=== PATIENT | male | born 1955 | race Asian ===

== ENCOUNTER 2017-10-21 12:11 | Outpatient (CLI) | payer OTHER | END 2017-10-21 12:12 | disposition home or self-care (01) | LOC: BICMRI 12:11 | PROVIDERS: ATTEND Family Medicine | DX: M23.92 Unspecified internal derangement of left knee (principal) ==

== ENCOUNTER 2022-02-10 18:49 | Inpatient (IN) | payer MEDICARE ==
[2022-02-10] MEDS ORDERED: hydrALAZINE 20 MG/ML VIAL SLOW IVP PRN (20:26)
[2022-02-10] MEDS ORDERED: Ondansetron PF 4 MG/2 ML Vial IVP PRN (20:26)
[2022-02-10] MEDS ORDERED: Labetalol HCl 100 MG/20 ML VIAL SLOW IVP PRN (20:26)
[2022-02-10] MEDS ORDERED: HumaLOG 300 UNITS/3 ML VIAL SC PRN (20:29)
[2022-02-10] MEDS ORDERED: Dextrose 50% Abboject 50 ML SYRINGE SLOW IVP PRN (20:29)
[2022-02-10] MEDS ORDERED: Dextrose 5% in Water 1,000 ML IV PRN (20:29)
[2022-02-10] MEDS ORDERED: Aspirin 325 mg Enteric Coated Tablet PO SCH (20:30)
[2022-02-10 21:01] VITALS: BMI 29.2
[2022-02-11 05:34] LABS: #Eosinphils 0.4 thou/uL (0.0-0.7); #Monocytes 0.5 thou/uL (0.11-0.59); #Neutrophils 3.7 thou/uL (1.40-6.50); %Basophils 0.7 % (0.0-1.0); %Eosinophils 5.9 % (0.0-10.0); %Monocytes 7.8 % (0.0-10.0); %Neutrophils 55.7 % (42.0-75.0); Hemoglobin 13.8 g/dL (14.0-18.0); Mean Corpuscular HGB CONC 33.2 g/dL (32.0-36.0); Mean Corpuscular Hemoglobin 29.1 pg (27.0-31.0); Mean Corpuscular Volume 87.5 fL (78.0-98.0); Mean Platelet Volume 7.9 fL (7.4-10.4); Platelet Count 227 thou/uL (130-400); RBC Distribution Width 12.4 % (11.5-14.5); Red Blood Cell (RBC) Count 4.76 mill/uL (4.70-6.10); White Blood Cell (WBC) Count 6.6 thou/uL (4.8-10.8)
[2022-02-11 05:57] LABS: Anion Gap 15 mmol/L (10-20); BUN (Urea Nitrogen) 19 mg/dL (8.4-25.7); Calc. Creatinine Clearance 99 mL/min (70-130); Calcium 9.3 mg/dL (7.8-10.44); Carbon Dioxide 25 mmol/L (23-31); Chloride 103 mmol/L (98-107); Cholesterol 194 mg/dl (< 200 Desired); Estimated GFR 97; Glucose 116 mg/dL (80-115); HDL Cholesterol 39 mg/dL (>60 Neg Risk); LDL Cholesterol, Calculated 124 mg/dL; Potassium 3.1 mmol/L (3.5-5.1); Sodium 140 mmol/L (136-145); Triglycerides 157 mg/dL (Less than 150)
[2022-02-11] MEDS ORDERED: Potassium Chloride 20 MEQ TAB PO SCH (09:00)
[2022-02-11] MEDS ORDERED: Losartan/Hydrochlorothiazide 100 mg/25 mg Tablet PO SCH (09:00)
[2022-02-11] MEDS: Loratadine 10 MG TAB PO SCH (10:19)
[2022-02-11] MEDS ORDERED: Aspirin 81 mg Enteric Coated Tablet PO SCH (13:45)
[2022-02-11] MEDS: hydrALAZINE 25 MG TAB PO SCH ×2 (15:58→21:15)
[2022-02-11] MEDS: HumaLOG 300 UNITS/3 ML VIAL SC PRN (17:33)
[2022-02-11] MEDS ORDERED: Atorvastatin Calcium 40 MG TAB PO SCH (21:00)
[2022-02-12] MEDS: Acetaminophen 325 MG TAB PO PRN ×2 (03:47→10:22)
[2022-02-12] MEDS ORDERED: Electrolyte Replacement Protocol 1 EACH FS SCH (05:00)
[2022-02-12 05:29] LABS: #Eosinphils 0.3 thou/uL (0.0-0.7); #Monocytes 0.7 thou/uL (0.11-0.59); #Neutrophils 9.7 thou/uL (1.40-6.50); %Basophils 0.3 % (0.0-1.0); %Eosinophils 2.5 % (0.0-10.0); %Lymphocytes 8.7 % (21.0-51.0); %Monocytes 6.1 % (0.0-10.0); %Neutrophils 82.4 % (42.0-75.0); Hemoglobin 13.6 g/dL (14.0-18.0); Mean Corpuscular HGB CONC 33.4 g/dL (32.0-36.0); Mean Corpuscular Hemoglobin 29.2 pg (27.0-31.0); Mean Corpuscular Volume 87.4 fL (78.0-98.0); Platelet Count 233 thou/uL (130-400); RBC Distribution Width 12.2 % (11.5-14.5); Red Blood Cell (RBC) Count 4.66 mill/uL (4.70-6.10); White Blood Cell (WBC) Count 11.8 thou/uL (4.8-10.8)
[2022-02-12 05:47] LABS: Anion Gap 14 mmol/L (10-20); BUN (Urea Nitrogen) 19 mg/dL (8.4-25.7); Calc. Creatinine Clearance 99 mL/min (70-130); Carbon Dioxide 23 mmol/L (23-31); Chloride 104 mmol/L (98-107); Estimated GFR 97; Glucose 135 mg/dL (80-115); Potassium 3.4 mmol/L (3.5-5.1); Sodium 138 mmol/L (136-145)
[2022-02-12 05:48] LABS: Magnesium 1.8 mg/dL (1.6-2.6)
[2022-02-12] MEDS ORDERED: Potassium Chloride 20 MEQ TAB PO SCH (08:00)
[2022-02-12] MEDS ORDERED: Magnesium 2 GM/50 ML(in water) 2 GM in Premix Bag 1 BAG IVPB SCH (08:00)
[2022-02-12] MEDS: Loratadine 10 MG TAB PO SCH (08:31)
[2022-02-12] MEDS: hydrALAZINE 25 MG TAB PO SCH ×3 (08:32→14:56)
[2022-02-12] MEDS ORDERED: Aspirin 81 mg Enteric Coated Tablet PO SCH (09:00)
[2022-02-12] MEDS ORDERED: Metoprolol Tartrate 50 MG TAB PO SCH (09:00)
[2022-02-12] MEDS: HumaLOG 300 UNITS/3 ML VIAL SC PRN ×2 (11:49→16:47)
[2022-02-12 15:00] VITALS: BP 168/98
[2022-02-12 16:00] VITALS: TEMP 98.4
== END 2022-02-12 18:36 | disposition home or self-care (01) | DRG 69 ==
LOC: NEURO 19:52 → INTOOBSV 19:52 → OBSVTOIN 02-11 13:57
PROVIDERS: ADMIT Internal Medicine; ATTEND Hospitalist
DX: G45.9 Transient cerebral ischemic attack, unspecified (principal); I47.2 Ventricular tachycardia; I10 Essential (primary) hypertension; E78.5 Hyperlipidemia, unspecified; K21.9 Gastro-esophageal reflux disease without esophagitis; M19.90 Unspecified osteoarthritis, unspecified site; G93.89 Other specified disorders of brain; R73.9 Hyperglycemia, unspecified; R29.810 Facial weakness; R73.03 Prediabetes; I49.3 Ventricular premature depolarization; R20.2 Paresthesia of skin; Z20.822 Contact with and (suspected) exposure to COVID-19; Z87.820 Personal history of traumatic brain injury; Z79.899 Other long term (current) drug therapy; Z98.890 Other specified postprocedural states; Z82.49 Family history of ischemic heart disease and other diseases of the circulatory system
CPT/HCPCS: 36415; 36416; 70551; 80048; 80061; 83036; 83735; 85025; 93306; G0378; J0360; J1815; J3475; U0003; U0005

== ENCOUNTER 2022-06-15 19:30 | Outpatient (CLI) | payer MEDICARE | END 2022-06-15 19:31 | disposition home or self-care (01) | LOC: SLEEPLAB 19:30 | PROVIDERS: ATTEND Student in an Organized Health Care Education/Training Program | DX: G47.33 Obstructive sleep apnea (adult) (pediatric) (principal); R06.83 Snoring; G45.9 Transient cerebral ischemic attack, unspecified; I10 Essential (primary) hypertension; G47.10 Hypersomnia, unspecified; G47.61 Periodic limb movement disorder; E66.9 Obesity, unspecified; Z68.29 Body mass index [BMI] 29.0-29.9, adult | CPT/HCPCS: 95811 ==

== ENCOUNTER 2023-02-20 12:51 | Outpatient (CLI) | payer OTHER | END 2023-02-20 12:52 | disposition home or self-care (01) | LOC: CT 12:51 | PROVIDERS: ATTEND Psychiatry & Neurology Neurology | DX: I63.9 Cerebral infarction, unspecified (principal); I48.91 Unspecified atrial fibrillation; G45.9 Transient cerebral ischemic attack, unspecified | CPT/HCPCS: 36415; 70450; 80053; 80061; 83036; 85025; 93880 ==

== ENCOUNTER 2023-03-14 14:32 | Outpatient (CLI) | payer OTHER | END 2023-03-14 14:33 | disposition home or self-care (01) | LOC: ULT 14:32 | PROVIDERS: ATTEND Student in an Organized Health Care Education/Training Program | DX: E04.2 Nontoxic multinodular goiter (principal) | CPT/HCPCS: 76536 ==

== ENCOUNTER 2023-08-27 10:45 | Outpatient (CLI) | payer MEDICARE | END 2023-08-27 10:46 | disposition home or self-care (01) | LOC: ULT 10:45 | PROVIDERS: ATTEND Student in an Organized Health Care Education/Training Program | DX: E04.2 Nontoxic multinodular goiter (principal) | CPT/HCPCS: 76536 ==